=== PATIENT | female | born 1955 | race Caucasian/White ===

== ENCOUNTER 2021-03-04 07:35 | Inpatient (IN) | payer MEDICARE, MEDICAID, SELFPAY ==
[2021-03-04] VITALS (27 sets, daily range): BP systolic 146–228; BP diastolic 75–124; PULSE 70–98; RESP 14–29; TEMP 36.1–36.7; O2SAT 93–100; BMI 44.1
--- NOTE | ~2021-03-04 | XR_ITS ---
EXAMINATION: XR chest 2V DATE: 03/04/2021 07:55 INDICATION: Shortness of breath. TECHNIQUE: Frontal and lateral views of the chest were obtained. COMPARISON: None. FINDINGS: There are airspace opacities in the mid and lower lung zones with a perihilar predominance. There is a small left pleural effusion. No pneumothorax. Cardiomegaly is noted. IMPRESSION: 1. Airspace opacities in the mid and lower lung zones with a perihilar predominance, consistent with mild pulmonary edema versus pneumonia. 2. Small left pleural effusion. 3. Cardiomegaly. Reviewed, dictated and finalized at location B. IMPRESSION: 1. Airspace opacities in the mid and lower lung zones with a perihilar predomin ance, consistent with mild pulmonary edema versus pneumonia. 2. Small left pleural effusion. 3. Cardiomegaly.
--- NOTE | ~2021-03-04 | NM_ITS ---
EXAMINATION: NM alvina stress w perfusion DATE: 03/08/2021 13:36 INDICATION: Congestive heart failure. Elevated troponin. TECHNIQUE: Rest images were obtained following intravenous administration of 9 mCi Tc99m tetrofosmin (Myoview). The patient was infused intravenously with Lexiscan (regadenoson). Then, 27.6 mCi Tc99m te trofosmin (Myoview) was administered intravenously, and stress images were obtained. Data was reconst ructed into short axis and horizontal and vertical long axis SPECT images. Gated SPECT images were al so obtained. COMPARISON: None. FINDINGS: There is a large, partially reversible, severe perfusion defect involving mid inferior wall , mid to basal inferolateral wall, apical lateral wall, and mid anterolateral wall of left ventricle, consistent with mixed ischemia and infarct. There is no segmental wall motion abnormality. Left ve ntricular ejection fraction measures 59%. IMPRESSION: 1. Large area of severe mixed ischemia and infarct involving mid inferior wall, mid to basal inferola teral wall, apical lateral wall, and mid anterolateral wall of left ventricle. 2. Normal left ventricular ejection fraction measuring 59%. Reviewed, dictated and finalized at location A. IMPRESSION: 1. Large area of severe mixed ischemia and infarct involving mid inferior wall, mid to basal inferolateral wall, apical lateral wall, and mid anterolateral wa ll of left ventricle. 2. Normal left ventricular ejection fraction measuring 59%.
--- NOTE | 2021-03-04 07:43 | ED.SOB ---
HPI - SOB/Dyspnea General Chief Complaint: Shortness of Breath/Dyspnea Stated Complaint: SOB Time Seen by Provider: 03/04/21 07:37 Source: patient, family, EMS and RN notes reviewed Mode of arrival: EMS Limitations: no limitations History of Present Illness HPI Narrative: Patient is 65 years old white female presented to the ED with shortness of breath. Patient reports history of chronic shortness of breath and coughing, got worse over the last 2 days, this morning could not breathe well. History of COPD on 2-1/2 L oxygen by nasal cannula, atrial fibrillation on Coumadin, congestive heart failure. Patient is telling me that she got all her medications this morning as usual. History of COVID-19 infection August 2020, did not get vaccinated for Covid yet. Patient denies any fever, chills, nausea, vomiting, chest pain, increased coughing, or increase the amount of sputum. MD elicited complaint: shortness of breath Related Data Home Medications Medication Instructions Recorded Confirmed amlodipine 03/04/21 ferrous sulfate [FeroSul] mg 03/04/21 furosemide 03/04/21 hydralazine 03/04/21 metformin mg 03/04/21 metoprolol tartrate 03/04/21 potassium chloride meq PO 03/04/21 warfarin 03/04/21 warfarin 03/04/21 warfarin 03/04/21 Allergies Allergy/AdvReac Type Severity Reaction Status Date / Time No Known Allergies Allergy Verified 03/04/21 07:44 Review of Systems Review of Systems: Narrative: CONSTITUTIONAL: Denies fever, chills, or sweats. EYES: Denies visual changes, redness, or discharge. ENT: Denies rhinorrhea, congestion, sore throat, or otalgia. CARDIOVASCULAR: Denies chest pain, palpitations, or edema. RESPIRATORY: Denies cough or dyspnea. GASTROINTESTINAL: Denies abdominal pain, nausea, vomiting, or diarrhea. GENITOURINARY: Denies dysuria or hematuria. SKIN: Denies rash or itching. MUSCULOSKELETAL: Denies back pain, joint pain, or myalgia. NEUROLOGIC: Denies headache, numbness, or weakness. PSYCHIATRIC: Denies anxiety or depression. Exam Narrative: Exam Narrative: General appearance: Well-developed, well-nourished, sitting in upright position, labored breathing, nasal cannula on, granddaughter at the bedside Skin: Normal color Head: Normocephalic, nontraumatic Eyes: Clear conjunctiva ENT: Oropharynx normal, ears normal, nose normal Neck: Supple, nontender Chest and respiratory: Marked diminution of air entry bilaterally, basal rales bilaterally, few scattered rhonchi Heart: Irregular irregularity Abdomen: Soft, nontender, no organomegaly, quiet bowel sounds Vascular: Normal peripheral pulses, normal capillary refill. Musculoskeletal: Normal range of motion, nontender back Neurologic: Alert and oriented ?3, VP PRODUCTION is normal as tested, no gross motor deficit Course Course Emergency Course: Improving Vital Signs Vital signs: Vital Signs Temperature 36.7 C 03/04/21 07:40 Pulse Rate 92 03/04/21 07:40 Respiratory Rate 28 H 03/04/21 07:40 Blood Pressure 199/112 H 03/04/21 07:40 Pulse Oximetry 93 03/04/21 07:40 Temperature 36.7 C 03/04/21 07:40 Pulse Rate 92 03/04/21 07:40 Respiratory Rate 28 H 03/04/21 07:40 Blood Pressure 199/112 H 03/04/21 07:40 Pulse Oximetry 93 03/04/21 07:40 MDM - SOB/Dyspnea Differential Diagnosis Differential diagnosis: Likely acute exacerbation of chronic obstructive airways disease, congestive heart failure and community acquired pneumonia ABG Data ABG results: Impressions Chest X-Ray 03/04/21 07:59 IMPRESSION: 1. Airspace opacities in the mid and lower lung zones with a perihilar predominance, consistent with mild pulmonary edema versus pneumonia. 2
--- NOTE | 2021-03-04 07:44 | ECG_ITS ---
ATRIAL FIBRILLATION VENTRICULAR PREMATURE COMPLEX LEFT BUNDLE BRANCH BLOCK LOW QRS VOLTAGE IN LIMB LEADS EXTENSIVE ANTERIOR INFARCT OR DUE TO LBBB BASELINE ARTIFACT- I, II, III, AVR, AVL, AVF ABNORMAL ECG Electronically Signed On 03-09-2021 14:52:00 CDT by Narinder RUSSELL
[2021-03-04] MEDS: methylPREDNISolone SOD SUCC 125 MG VIAL IV PUSH (07:56)
[2021-03-04] MEDS: IPRATROPIUM BR 0.02% INH SOLN 0.5 MG/2.5 ML VIAL INHALATION ×3 (08:06→19:45)
[2021-03-04] MEDS: ALBUTEROL SULFATE NEB 2.5 MG/0.5 ML INH 5 MG INHALATION ×3 (08:06→19:45)
[2021-03-04 08:20] LABS: Alveolar/Arterial O2 Gradient 117.8 mmHg; Base Excess ABG 6.6 mEq/l (+/-2.0); Fractional Inspired Oxygen 36 %; HCO3 ABG 34.3 mEq/l (22.0-26.0); Oxygen Content ABG 14.9 %vol (16.0-22.0); Oxygen Saturation ABG 90.2 % (95.0-100.0); Oxyhemoglobin 89.5 % THb (90.0-100.0); PO2 ABG 63.4 mmHg (80.0-100.0); PO2 FiO2 Ratio Arterial Blood 1.76 %; Total Hemoglobin 11.8 g/dL (12.0-18.0); pH ABG 7.339 (7.350-7.450)
[2021-03-04 08:22] LABS: Device NASAL CANNULA; Modified Allen's Test Pass; PCO2 ABG 65.1 mmHg (35.0-45.0); Site Drawn LEFT RADIAL
[2021-03-04] MEDS: NITROGLYCERIN OINTMENT 1 INCH DOSE TRANSDERM ×3 (08:40→16:38)
[2021-03-04] MEDS: FUROSEMIDE INJ 40 MG/4 ML VIAL 60 MG IV PUSH (08:43)
[2021-03-04 09:04] LABS: Alanine Aminotransferase 18 U/L (4-35); Albumin Level 4.1 g/dL (3.5-5.1); Alkaline Phosphatase 134 U/L (38-126); Anion Gap 6 mmol/L (8-16); Aspartate Amino Transferase 31 U/L (14-36); Blood Urea Nitrogen 26 mg/dL (7-17); Carbon Dioxide 35 mmol/L (22-30); Chloride 98 mmol/L (98-107); Estimated CRCL calculation 36 ml/min; Estimated Glomerular Filt Rate 32; Glucose 203 mg/dL (65-105); Magnesium 1.8 mg/dL (1.6-2.3); Potassium 4.1 mmol/L (3.4-5.0); Sodium 139 mmol/L (137-145)
[2021-03-04 09:18] LABS: NT Pro B Type Natriuretic Pept 5670 PG/ML (5-100); Troponin I 0.039 ng/mL (0.000-0.034)
[2021-03-04 09:24] LABS: Basophils Percent Auto 0.5 % (0.2-1.2); Eosinophils Absolute Auto 0.1 K/mm3 (0-0.3); Eosinophils Percent Auto 1.6 % (0-4.4); Hematocrit 35.4 % (37.0-47.0); Hemoglobin 10.9 g/dL (12.0-15.0); Immature Granulocyte Absolute 0.04 K/mm3 (0.00-0.031); Immature Granulocyte Percent A 0.5 % (0-0.5); Lymphocytes Percent Auto 5.7 % (18.3-44.2); Mean Corpuscular HGB Conc 30.8 g/dl (32-36); Mean Corpuscular Hemoglobin 28.6 pg (26-34); Mean Corpuscular Volume 92.9 fl (80-100); Mean Platelet Volume 10.4 fl (7.4-10.4); Monocytes Absolute Auto 0.3 K/mm3 (0.1-0.6); Monocytes Percent Auto 3.3 % (2.6-8.5); Neutrophils Absolute Auto 7.7 K/mm3 (1.3-6.7); Neutrophils Percent Auto 88.4 % (45.5-73.1); Platelet Count Result 157 k/mm3 (150-375); Red Blood Count 3.81 M/mm3 (4.2-5.4); Red Cell Distribution Width 15.3 % (11.5-14.5); White Blood Count 8.8 K/mm3 (4.5-10.0)
[2021-03-04 09:34] LABS: INR 1.8; Prothrombin Time 21.5 Seconds (11.1-14.7)
[2021-03-04 09:35] LABS: Partial Thromboplastin Time 30.9 SECONDS (22.3-36.8)
--- NOTE | 2021-03-04 10:35 | PC.NURSE ---
EDP notified of patient high blood pressure. Per EDP via verbal order readback place additional inch of nitro paste on patient.
--- NOTE | 2021-03-04 12:35 | PC.NURSE ---
This patient, Sultana Ospina, was admitted to IMU Room 213-01. Patient/family oriented to hospital policies and general routines including ID bracelet, bed and alarms, visiting hours, pain management, procedures, bathroom and other care routines, personal items, smoking policy, room service/diet, and visiting hours. Information on how to activate the Rapid Response Team has been discussed. Patient/Family are encouraged to report perceived risks to care and to ask questions if they do not understand what they are told or what they should do.
--- NOTE | 2021-03-04 14:30 | PM.IMHP ---
H&P: HPI History of Present Illness Date/Time: 03/04/21 14:30 this is a 65 year old female patient who has a history of chronic respiratory failure with oxygen at 2.5 L per nasal cannula. She has COPD and congestive heart failure. The patient does not have any increased swelling in her lower extremities has been feeling more short of breath over the last 2 days. Today she crease her oxygen up to 4 L per nasal cannula. For the past 2 days she has been more short of breath with exertion. She has been walking shorter distances due to the shortness of breath. The patient has not had her COVID vaccine but has a history of COVID-19 infection back in August of 2020. She denied any fever chills. No nausea vomiting or diarrhea. Patient's oxygen levels 93%. Chest x-ray was read as airspace opacities in the mid and lower lung zones with perihilar predominance, consistent with pulmonary edema versus pneumonia. Small left pleural effusion. Cardiomegaly. Her EKG was read as normal sinus rhythm nonspecific T-wave abnormality. H&H is 10.9 and 35.4. On her ABGs her pH was 7.339 and her CO2 was 65.1. She was initially placed on a BiPAP while in the emergency room but felt better and is now down to her normal 2.5 L. her O2 saturation is 100% now. Was given a nebulizer treatment, Lasix, Levaquin, nitro, and Solu-Medrol. The patient stated that she does not have any chest pain. The patient was swabbed for COVID-19 and results are pending.. Glucose 203. Creatinine 1.60. The patient denies any past history of any kidney disease. The patient stated with her last labs her A1c was good according to the patient but she could not remember the numbers. Troponin 0.039 and 0.075. BNP is 5670. The patient is being admitted for observation status on Date of service of 03/04/2021. Chief Complaint: Dyspnea on exertion Review of Systems Review of Systems: All systems reviewed & are unremarkable except as noted in HPI and below Constitutional: Constitutional: Reports as per HPI and Reports no additional constitutional complaints Eyes: Eyes: Reports as per HPI and Reports no additional eye complaints ENT: Reports system reviewed and no additional complaints, except as documented and Reports Normal hearing present Cardiovascular: Cardiovascular: Reports no additional cardiovascular complaints Respiratory: Respiratory: Reports no additional respiratory complaints and Reports no additional respiratory complaints Gastrointestinal: Gastrointestinal: Reports as per HPI and Reports no additional gastrointestinal complaints Musculoskeletal: Musculoskeletal: Reports no additional musculoskeletal complaints Integumentary/Breasts: Skin/Breast: Reports system reviewed and no additional complaints, except as docu and Reports as per HPI Neurologic: Reports system reviewed and no additional complaints, except as documented, Reports as per HPI and Reports Normal hearing present Psychiatric: Psychiatric: Reports no additional psychiatric complaints and Reports as per HPI Endocrine: Endocrine: Reports no additional endocrine complaints Hematologic/Lymphatic: Hematologic/Lymphatic: Reports no additional hematologic/lymphatic complaints Allergic/Immunologic: Allergic/Immunologic: Reports no additional allergic/immunologic complaints [facility] Past Medical History Medical History CHF exacerbation Chronic respiratory failure with hypoxia, on home oxygen therapy Congestive heart failure COPD (chronic obstructive pulmonary disease) Diabetes Last A1c unknown typically gets care at [facility] History of cellulitis Bilateral lower extremities Hypertension Iron deficiency anemia Paroxysmal A-fib Vertigo Surgical History Surgical History H/O tubal ligation History of back surgery History of incision and drainage Lower extremity Family History Family Hi
[2021-03-04 14:35] LABS: Troponin I 0.075 ng/mL (0.000-0.034)
[2021-03-04 16:30] LABS: Glucose Point of Care 215 (65-105)
[2021-03-04] MEDS: FERROUS SULFATE 324 MG TABLET PO (16:35)
[2021-03-04] MEDS: FUROSEMIDE INJ 40 MG/4 ML VIAL IV PUSH (16:36)
[2021-03-04] MEDS: INSULIN ASPART (*BKC) 100 UNITS/ML SUB-Q (16:37)
[2021-03-04] MEDS: methylPREDNISolone SOD SUCC 125 MG VIAL 80 MG IV PUSH (16:37)
[2021-03-04] MEDS: hydrALAZINE HCL 50 MG TABLET 100 MG PO (16:38)
[2021-03-04 16:46] LABS: INR 2.1; Prothrombin Time 23.7 Seconds (11.1-14.7)
[2021-03-04 16:56] LABS: SARS-CoV-2 RNA PCR Negative
[2021-03-04 16:59] LABS: Troponin I 0.063 ng/mL (0.000-0.034)
[2021-03-04] MEDS: METOPROLOL TARTRATE 50 MG TAB 100 MG PO (19:54)
[2021-03-04] MEDS: BETAMETHASONE/CLOTRIMAZOLE CR 15 GM TUBE 1 APPLIC TOPICAL (19:55)
[2021-03-04 20:59] LABS: Glucose Point of Care 223 (65-105)
[2021-03-05] VITALS (22 sets, daily range): BP systolic 154–184; BP diastolic 77–94; PULSE 60–90; RESP 16–30; TEMP 36–36.5; O2SAT 97–100
--- NOTE | 2021-03-05 | ECHO_ITS ---
Patient Info Name: Sultana Ospina Age: 65 years : 1955 Gender: Female Ht: 61 in Wt: 233 lbs BSA: 2.20 m2 HR: 85 bpm BP: 173 / 83 mmHg Heart Rhythm: Atrial Fibrillation Technical Quality: Poor Exam Date: 03/05/2021 10:47 AM Exam Location: [facility] Pulmonary Patient Status: Inpatient Admit Date: 03/04/2021 Staff Ordering Physician: Dinah Espana NP Superintendent Meters: Kitty Stern RDCS Attending Provider: Abel Girard MD Referring Physician: Jovi ZAYAS; Exam Type: CA echo dop color flow w con Study Info Indications R06.02 - Shortness of breath Complete two-dimensional, color flow and Doppler transthoracic echocardiogram is performed with contrast to opacify the left ventricle and to improve the deliniation of the left ventricle endocardial borders. Contrast/Agitated Saline Contrast/Ag. Saline: Definity Amount: 1.00 ml Administered By: Radha Matos RN Existing IV Access: Yes IV Access Condition: patent with no signs of infiltration Reason for Poor Study: poor echocardiographic windows Summary 1. Left ventricular chamber dimension is normal. 2. Definity contrast administered improved wall motion interpretation. 3. Left ventricular systolic function is normal, estimated at 60-65%. 4. There is mildly increased left ventricular wall thickness. 5. The left ventricular diastolic function is abnormal. 6. E/e' 20 is elevated. 7. Atrial fibrillation. 8. Left atrial chamber dimension is moderately enlarged. 9. There is moderate aortic valve sclerosis. 10. The mitral valve has moderately calcified annulus. 11. There is mild tricuspid valve regurgitation. 12. Mild pulmonary hypertension, estimated pulmonary arterial systolic pressure is 40 mmHg. Left Ventricle E/e' 20 is elevated. Atrial fibrillation. Definity contrast administered improved wall motion interpretation. Left ventricular chamber dimension is normal. Left ventricular systolic function is normal, estimated at 60-65%. There is mildly increased left ventricular wall thickness. The left ventricular diastolic function is abnormal. Right Ventricle Right ventricular chamber dimension is normal. Right ventricular systolic function is normal. Left Atria Left atrial chamber dimension is moderately enlarged. Right Atria Right atrial chamber dimension is normal. Aortic Valve The aortic valve is trileaflet. There is moderate aortic valve sclerosis. There is no aortic valve stenosis. There is no aortic valve regurgitation. Pulmonic Valve There is no pulmonic regurgitation. Mitral Valve The mitral valve has moderately calcified annulus. There is no mitral valve stenosis. There is no mitral valve regurgitation. Tricuspid Valve There is mild tricuspid valve regurgitation. Mild pulmonary hypertension, estimated pulmonary arterial systolic pressure is 40 mmHg. Pericardium/Pleural There is no pericardial effusion. Inferior Vena Cava Normal inferior vena cava with >50% collapse upon inspiration consistent with normal right atrial pressure, 5 mmHg. Aorta The aortic root size at the sinus of Valsalva is normal. Left Ventricular Outflow Tract Name Value Normal LVOT 2D
[2021-03-05] MEDS: hydrALAZINE HCL 50 MG TABLET 100 MG PO ×3 (00:56→17:34)
[2021-03-05] MEDS: NITROGLYCERIN OINTMENT 1 INCH DOSE TRANSDERM ×5 (00:56→23:57)
[2021-03-05] MEDS: methylPREDNISolone SOD SUCC 125 MG VIAL 80 MG IV PUSH ×5 (01:01→23:56)
[2021-03-05] MEDS: ALBUTEROL SULFATE NEB 2.5 MG/0.5 ML INH 5 MG INHALATION ×4 (01:09→20:18)
[2021-03-05] MEDS: IPRATROPIUM BR 0.02% INH SOLN 0.5 MG/2.5 ML VIAL INHALATION ×4 (01:09→20:18)
[2021-03-05 04:48] LABS: Basophils Percent Auto 0.1 % (0.2-1.2); Hematocrit 32.9 % (37.0-47.0); Hemoglobin 10.4 g/dL (12.0-15.0); Immature Granulocyte Absolute 0.03 K/mm3 (0.00-0.031); Immature Granulocyte Percent A 0.4 % (0-0.5); Lymphocytes Absolute Auto 0.32 K/mm3 (0.9-3.2); Lymphocytes Percent Auto 4.2 % (18.3-44.2); Mean Corpuscular HGB Conc 31.6 g/dl (32-36); Mean Corpuscular Hemoglobin 28.6 pg (26-34); Mean Corpuscular Volume 90.4 fl (80-100); Mean Platelet Volume 10.7 fl (7.4-10.4); Monocytes Absolute Auto 0.1 K/mm3 (0.1-0.6); Monocytes Percent Auto 1.3 % (2.6-8.5); Neutrophils Absolute Auto 7.1 K/mm3 (1.3-6.7); Platelet Count Result 142 k/mm3 (150-375); Red Blood Count 3.64 M/mm3 (4.2-5.4); Red Cell Distribution Width 15.1 % (11.5-14.5); White Blood Count 7.6 K/mm3 (4.5-10.0)
[2021-03-05 05:05] LABS: Alanine Aminotransferase 16 U/L (4-35); Alkaline Phosphatase 101 U/L (38-126); Anion Gap 7 mmol/L (8-16); Aspartate Amino Transferase 24 U/L (14-36); Bilirubin,Total 1.1 mg/dL (0.2-1.3); Blood Urea Nitrogen 36 mg/dL (7-17); Calcium 9.4 mg/dL (8.4-10.2); Carbon Dioxide 34 mmol/L (22-30); Chloride 96 mmol/L (98-107); Estimated CRCL calculation 38 ml/min; Estimated Glomerular Filt Rate 35; Glucose 204 mg/dL (65-105); Magnesium 1.9 mg/dL (1.6-2.3); Potassium 4.5 mmol/L (3.4-5.0); Sodium 137 mmol/L (137-145)
[2021-03-05] MEDS: hydrALAZINE HCL 20 MG/ML VIAL 10 MG IV PUSH (05:16)
[2021-03-05 05:27] LABS: Troponin I 0.035 ng/mL (0.000-0.034)
[2021-03-05 06:54] LABS: Hemoglobin A1C 5.4 % (<5.7)
[2021-03-05 08:28] LABS: Thyroid Stimulating Hormone Reflex 0.292 uIU/mL (0.465-4.68)
[2021-03-05] MEDS: METOPROLOL TARTRATE 50 MG TAB 100 MG PO ×2 (08:40→21:12)
[2021-03-05] MEDS: WARFARIN (*PBKC) 3 MG TABLET 6 MG PO (08:40)
[2021-03-05] MEDS: FUROSEMIDE INJ 40 MG/4 ML VIAL IV PUSH ×2 (08:41→17:34)
[2021-03-05] MEDS: POTASSIUM CHLORIDE 10 MEQ TABLET.ER PO (08:42)
[2021-03-05] MEDS: FERROUS SULFATE 324 MG TABLET PO ×2 (08:42→17:33)
[2021-03-05] MEDS: BETAMETHASONE/CLOTRIMAZOLE CR 15 GM TUBE 1 APPLIC TOPICAL ×2 (08:43→21:12)
[2021-03-05] MEDS: ASPIRIN 81 MG CHEWABLE TABLET PO (08:47)
[2021-03-05] MEDS: INSULIN ASPART (*BKC) 100 UNITS/ML SUB-Q ×4 (08:47→21:13)
[2021-03-05 08:59] LABS: Glucose Point of Care 332 (65-105)
[2021-03-05] MEDS: PERFLUTREN LIPID MICROSPHERES 1.5 ML VIAL DILUTED TO 10 ML TOTAL VOLUME IV PUSH (11:21)
[2021-03-05 12:30] LABS: Total Triiodothyronine (T3) 0.74 NG/ML (0.97-1.69)
[2021-03-05 12:52] LABS: Glucose Point of Care 246 (65-105)
--- NOTE | 2021-03-05 13:17 | PM.IMPN ---
Progress Note: A&P Additional Plan (1) Acute exacerbation of chronic obstructive airways disease: (2) CHF exacerbation: (3) Chronic respiratory failure with hypoxia, on home oxygen therapy: (4) Hypertension (5) Paroxysmal A on warfarin (6) Iron deficiency anemia: (7) Diabetes: (8) Renal failure: (9) Elevated troponin: Secondary to hypoxemia (10) Community acquired pneumonia: (11) hyperglycemia Continue with Solu-Medrol. Continue with neb treatments. Continue with home oxygen. 3 L Continue BiPAP machine p.r.n.. Echo pending patient appears to have systolic heart failure based on physical exam findings today continue Lasix to IV Continue with metoprolol and hydralazine. INR 2.2 continue home dose 6 mg p.o. q.day Increase sliding scale insulin Avoiding nephrotoxic medications. Add vancomycin given preliminary Gram-positive cluster blood culture Anticipate discharge in 2-3 days when patient euvolemic Subjective Date/time seen: 03/05/21 13:17 Patient states she is feeling much better she no longer feels her chest having and is unable to catch her breath. She is breathing without difficulty. He she is at normal baseline 3 L oxygen. Patient advise that she is on a fluid restriction, we follow-up with ongoing CHF teaching, dietary modification indications also given. Exam Narrative: Exam Narrative: GEN: NAD, AAOx3, cooperative HEENT: NCAT, MMM, EOMI Heart: S1S2 RRR Lungs: Bibasilar crackles with reduced breath sounds Abd: soft, NT, ND, bowel sounds normoactive Ext: moves all, no cyanosis, no clubbing, no edema Objective Data Vital Signs Vital Signs: Vital Signs - 24 hr 03/04/21 14:00 03/04/21 14:34 03/04/21 14:43 Temperature Pulse Rate 88 94 94 Respiratory Rate 20 20 Blood Pressure Pulse Oximetry 03/04/21 16:00 03/04/21 18:00 03/04/21 19:23 Temperature 97 F L 97.7 F Pulse Rate 81 85 85 Respiratory Rate 22 H 20 Blood Pressure 184/95 H 185/82 H Pulse Oximetry 100 97 03/04/21 19:45 03/04/21 19:54 03/04/21 19:56 Temperature Pulse Rate 98 85 85 Respiratory Rate 20 20 Blood Pressure Pulse Oximetry 98 03/04/21 20:00 03/04/21 22:00 03/04/21 22:35 Temperature Pulse Rate 75 78 81 Respiratory Rate 14 Blood Pressure Pulse Oximetry 97 98 03/05/21 00:00 03/05/21 01:14 03/05/21 01:15 Temperature 97.4 F L Pulse Rate 61 65 60 Respiratory Rate 17 28 H 28 H Blood Pressure 184/90 H Pulse Oximetry 100 98 03/05/21 01:19 03/05/21 02:00 03/05/21 03:22 Temperature 97.6 F Pulse Rate 63 90 78 Respiratory Rate 30 H 16 Blood Pressure 173/83 H Pulse Oximetry 100 03/05/21 04:00 03/05/21 06:09 03/05/21 08:00 Temperature 97.6 F Pulse Rate 66 68 85 Respiratory Rate 22 H Blood Pressure 154/94 H Pulse Oximetry 100 100 03/05/21 08:20 03/05/21 08:34 03/05/21 10:00 Temperature Pulse Rate 72 84 84 Respiratory Rate 20 20 Blood Pressure Pulse Oximetry 98 03/05/21 12:00 Temperature 97.7 F Pulse Rate 87 Respiratory Rate 24 H Blood Pressure 156/77 H Pulse Oximetry 98 Intake/Output Intake/Output: Intake & Output 03/02/21 03/03/21 03/04/21 03/05/21 23:59 23:59 23:59 23:59 Intake Total 390 710 Output Total 1475 1450 Balance -1088 -730 Meds/Results Medications: Active Medications Generic Name Dose Route Start Last Admin Trade Name Freq PRN Reason Stop Dose Admin Albuterol 5 mg 03/04/21 14:00 03/05/21 08:20 Albuterol Sulfate Neb 2.5 Mg/0.5 Ml Inh INHALATION 5 mg Q6HRT TARUN Administration Aspirin 81 mg 03/05/21 08:00 03/05/21 08:47 Aspirin 81 Mg Chewable Tablet PO 81 mg DAILY@0800 TARUN Administration Clotrimazole 1 applic 03/04/21 21:00 03/05/21 08:43 Betamethasone/Clotrimazole Cr 15 Gm Tube TOPICAL 1 applic Q12HR TARUN Administration Dextrose 12.5 gm 03/04/21 14:50 Dextrose 50% 25 Gm/50 Ml Syringe IV PUSH PRN PRN Hypoglycemia Protocol Ferrous Hendricks
[2021-03-05 17:25] LABS: Glucose Point of Care 299 (65-105)
[2021-03-05 20:52] LABS: Glucose Point of Care 269 (65-105)
[2021-03-05] MEDS: MAGNESIUM SULF 1 GM/D5W 100 ML 1 GM/100 ML BAG IVPB (22:31)
[2021-03-06] VITALS (30 sets, daily range): BP systolic 117–174; BP diastolic 51–99; PULSE 69–127; RESP 17–23; TEMP 36–36.4; O2SAT 97–100
[2021-03-06] MEDS: hydrALAZINE HCL 50 MG TABLET 100 MG PO ×3 (01:34→17:42)
[2021-03-06] MEDS: IPRATROPIUM BR 0.02% INH SOLN 0.5 MG/2.5 ML VIAL INHALATION ×4 (01:52→20:06)
[2021-03-06] MEDS: ALBUTEROL SULFATE NEB 2.5 MG/0.5 ML INH 5 MG INHALATION ×4 (01:52→20:06)
[2021-03-06 05:03] LABS: Magnesium 2.1 mg/dL (1.6-2.3)
[2021-03-06] MEDS: methylPREDNISolone SOD SUCC 125 MG VIAL 80 MG IV PUSH ×2 (05:07→11:33)
[2021-03-06] MEDS: NITROGLYCERIN OINTMENT 1 INCH DOSE TRANSDERM ×4 (05:08→23:04)
[2021-03-06 07:13] LABS: Glucose Point of Care 269 (65-105)
[2021-03-06] MEDS: INSULIN ASPART (*BKC) 100 UNITS/ML SUB-Q ×3 (07:23→16:31)
[2021-03-06] MEDS: FERROUS SULFATE 324 MG TABLET PO ×2 (09:18→16:30)
[2021-03-06] MEDS: WARFARIN (*PBKC) 3 MG TABLET 6 MG PO (09:19)
[2021-03-06] MEDS: METOPROLOL TARTRATE 50 MG TAB 100 MG PO ×2 (09:19→20:13)
[2021-03-06] MEDS: ASPIRIN 81 MG CHEWABLE TABLET PO (09:19)
[2021-03-06] MEDS: BETAMETHASONE/CLOTRIMAZOLE CR 15 GM TUBE 1 APPLIC TOPICAL ×2 (09:21→20:13)
[2021-03-06] MEDS: POTASSIUM CHLORIDE 10 MEQ TABLET.ER PO (09:21)
[2021-03-06] MEDS: FUROSEMIDE INJ 40 MG/4 ML VIAL IV PUSH (09:23)
[2021-03-06 10:34] LABS: Basophils Percent Auto 0.1 % (0.2-1.2); Hemoglobin 10.2 g/dL (12.0-15.0); Immature Granulocyte Absolute 0.13 K/mm3 (0.00-0.031); Lymphocytes Absolute Auto 0.22 K/mm3 (0.9-3.2); Lymphocytes Percent Auto 1.6 % (18.3-44.2); Mean Corpuscular HGB Conc 31.9 g/dl (32-36); Mean Corpuscular Hemoglobin 28.1 pg (26-34); Mean Corpuscular Volume 88.2 fl (80-100); Mean Platelet Volume 10.5 fl (7.4-10.4); Monocytes Absolute Auto 0.3 K/mm3 (0.1-0.6); Monocytes Percent Auto 2.2 % (2.6-8.5); Neutrophils Absolute Auto 12.7 K/mm3 (1.3-6.7); Neutrophils Percent Auto 95.1 % (45.5-73.1); Platelet Count Result 152 k/mm3 (150-375); Red Blood Count 3.63 M/mm3 (4.2-5.4); Red Cell Distribution Width 15.1 % (11.5-14.5); White Blood Count 13.4 K/mm3 (4.5-10.0)
[2021-03-06 10:46] LABS: D Dimer 0.58 ug/mL (<0.48)
[2021-03-06 10:53] LABS: Glucose Point of Care 270 (65-105)
[2021-03-06 10:54] LABS: Alanine Aminotransferase 19 U/L (4-35); Alkaline Phosphatase 86 U/L (38-126); Anion Gap 13 mmol/L (8-16); Aspartate Amino Transferase 25 U/L (14-36); Bilirubin,Total 0.6 mg/dL (0.2-1.3); Blood Urea Nitrogen 51 mg/dL (7-17); Calcium 9.2 mg/dL (8.4-10.2); Carbon Dioxide 29 mmol/L (22-30); Chloride 93 mmol/L (98-107); Estimated CRCL calculation 36 ml/min; Estimated Glomerular Filt Rate 32; Glucose 306 mg/dL (65-105); Potassium 3.8 mmol/L (3.4-5.0); Sodium 135 mmol/L (137-145)
[2021-03-06 10:55] LABS: Troponin I 0.028 ng/mL (0.000-0.034)
[2021-03-06] MEDS: METOPROLOL TARTRATE INJ 5 MG/5 ML VIAL 2.5 MG IV PUSH (10:55)
[2021-03-06] MEDS: INSULIN GLARGINE (*BKC) 100 UNITS/ML 10 UNITS SUB-Q (10:55)
[2021-03-06 10:56] LABS: Anisocytosis 1+ (NORMAL); Hypochromasia 1+ (NORMAL); Ovalocytes 1+ (NORMAL); Platelet Estimate Adequate (Adequate)
[2021-03-06 11:46] LABS: INR 1.9; Prothrombin Time 22.5 Seconds (11.1-14.7)
[2021-03-06 16:27] LABS: Glucose Point of Care 314 (65-105)
[2021-03-06 16:29] LABS: Troponin I 0.027 ng/mL (0.000-0.034)
[2021-03-06 16:42] LABS: Troponin I 0.031 ng/mL (0.000-0.034)
--- NOTE | 2021-03-06 17:26 | PM.IMPN ---
Progress Note: A&P Additional Plan (1) Acute exacerbation of chronic obstructive airways disease: (2) CHF exacerbation: (3) Chronic respiratory failure with hypoxia, on home oxygen therapy: (4) Hypertension (5) Paroxysmal A on warfarin (6) Iron deficiency anemia: (7) Diabetes: (8) Renal failure: (9) Elevated troponin: Secondary to hypoxemia (10) Community acquired pneumonia: (11) hyperglycemia Continue with Solu-Medrol. Continue with neb treatments. Continue with home oxygen. 3 L Continue BiPAP machine p.r.n.. Echo pending patient appears to have systolic heart failure based on physical exam findings today continue Lasix to IV Continue with metoprolol and hydralazine. INR 2.2 continue home dose 6 mg p.o. q.day Increase sliding scale insulin Avoiding nephrotoxic medications. 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 Breathing is at baseline. She is on 2 L and saturating 100% at present. When questioned patient states that she has her oxygen at home around the clock. I have spoke with patient's daughter via telephone to let her know plan of care that we will discuss with cardiology prior to her mother being discharged possibly tomorrow if cleared by their service. Exam Narrative: Exam Narrative: GEN: NAD, AAOx3, cooperative HEENT: NCAT, MMM, EOMI Heart: S1S2 RRR Lungs: Bibasilar crackles improved with reduced breath sounds Abd: soft, NT, ND, bowel sounds normoactive Ext: moves all, no cyanosis, no clubbing, no edema Objective Data Vital Signs Vital Signs: Vital Signs - 24 hr 03/05/21 18:00 03/05/21 20:00 03/05/21 20:18 Temperature 96.8 F L Pulse Rate 79 74 81 Respiratory Rate 20 20 Blood Pressure 168/93 H Pulse Oximetry 98 100 03/05/21 20:29 03/05/21 21:12 03/05/21 22:00 Temperature Pulse Rate 84 87 77 Respiratory Rate 20 Blood Pressure Pulse Oximetry 03/06/21 00:00 03/06/21 01:52 03/06/21 01:59 Temperature 96.8 F L Pulse Rate 91 81 88 Respiratory Rate 20 20 Blood Pressure 117/82 Pulse Oximetry 98 03/06/21 02:04 03/06/21 03:08 03/06/21 03:19 Temperature 97.4 F L Pulse Rate 78 85 85 Respiratory Rate 20 17 17 Blood Pressure 149/51 H Pulse Oximetry 97 98 98 03/06/21 04:00 03/06/21 05:31 03/06/21 07:57 Temperature 97.5 F L Pulse Rate 95 75 92 Respiratory Rate 20 Blood Pressure 155/96 H Pulse Oximetry 100 03/06/21 08:00 03/06/21 08:18 03/06/21 08:21 Temperature Pulse Rate 83 75 Respiratory Rate 18 18 Blood Pressure Pulse Oximetry 100 98 03/06/21 08:29 03/06/21 09:19 03/06/21 09:48 Temperature Pulse Rate 76 99 127 H Respiratory Rate 18 Blood Pressure Pulse Oximetry 03/06/21 10:00 03/06/21 10:55 03/06/21 11:30 Temperature 97 F L Pulse Rate 84 84 83 Respiratory Rate 18 Blood Pressure 156/55 H Pulse Oximetry 100 03/06/21 12:00 03/06/21 14:00 03/06/21 14:40 Temperature Pulse Rate 87 81 81 Respiratory Rate 18 18 Blood Pressure Pulse Oximetry 100 03/06/21 14:50 03/06/21 16:00 Temperature 97.4 F L Pulse Rate 79 91 Respiratory Rate 18 18 Blood Pressure 153/99 H Pulse Oximetry 100 Intake/Output Intake/Output: Intake & Output
[2021-03-06] MEDS: amLODIPine BESYLATE 5 MG TABLET 10 MG PO (17:42)
[2021-03-06 20:35] LABS: Glucose Point of Care 259 (65-105)
[2021-03-07] VITALS (25 sets, daily range): BP systolic 152–192; BP diastolic 59–103; PULSE 59–88; RESP 18–25; TEMP 36–37.1; O2SAT 96–100
[2021-03-07] MEDS: ALBUTEROL SULFATE NEB 2.5 MG/0.5 ML INH 5 MG INHALATION ×4 (01:36→19:54)
[2021-03-07] MEDS: IPRATROPIUM BR 0.02% INH SOLN 0.5 MG/2.5 ML VIAL INHALATION ×4 (01:36→19:54)
[2021-03-07] MEDS: hydrALAZINE HCL 50 MG TABLET 100 MG PO ×3 (02:40→18:45)
[2021-03-07] MEDS: NITROGLYCERIN OINTMENT 1 INCH DOSE TRANSDERM (04:18)
[2021-03-07 05:22] LABS: INR 2.2; Prothrombin Time 25.4 Seconds (11.1-14.7)
[2021-03-07] MEDS: ASPIRIN 81 MG CHEWABLE TABLET PO (07:59)
[2021-03-07] MEDS: INSULIN ASPART (*BKC) 100 UNITS/ML SUB-Q ×3 (07:59→16:52)
[2021-03-07] MEDS: BETAMETHASONE/CLOTRIMAZOLE CR 15 GM TUBE 1 APPLIC TOPICAL ×2 (08:02→21:12)
[2021-03-07] MEDS: amLODIPine BESYLATE 5 MG TABLET 10 MG PO (08:02)
[2021-03-07 08:03] LABS: Glucose Point of Care 228 (65-105)
[2021-03-07] MEDS: POTASSIUM CHLORIDE 10 MEQ TABLET.ER PO (08:03)
[2021-03-07] MEDS: methylPREDNISolone SOD SUCC 125 MG VIAL 60 MG IV PUSH ×2 (08:03→16:51)
[2021-03-07] MEDS: METOPROLOL TARTRATE 50 MG TAB 100 MG PO ×2 (08:03→21:11)
[2021-03-07] MEDS: INSULIN GLARGINE (*BKC) 100 UNITS/ML 10 UNITS SUB-Q (08:04)
[2021-03-07] MEDS: WARFARIN (*PBKC) 3 MG TABLET 6 MG PO (08:04)
[2021-03-07] MEDS: FUROSEMIDE INJ 40 MG/4 ML VIAL IV PUSH (08:05)
--- NOTE | 2021-03-07 10:54 | PM.CNCAR ---
Assessment and Plan Assessment and plan (1) Hypertension: Code(s): I10 - Essential (primary) hypertension Status: Chronic Assessment and Plan: Uncontrolled. Agree with the addition of amlodipine yesterday. (2) Paroxysmal A-fib: Code(s): I48.0 - Paroxysmal atrial fibrillation Status: Chronic Assessment and Plan: In and out of AFib. She does not need digoxin. Continue metoprolol. Continue warfarin (3) CHF exacerbation: Code(s): I50.9 - Heart failure, unspecified Status: Chronic Assessment and Plan: Diastolic in etiology. Will discontinue IV furosemide. Restart furosemide 40 mg p.o. b.i.d.. (4) Elevated troponin: Code(s): R77.8 - Other specified abnormalities of plasma proteins Status: Acute Assessment and Plan: Uncertain etiology to this point. Will keep NPO after midnight. I will order Lexiscan myocardial perfusion study for the morning (5) Ventricular tachycardia: Code(s): I47.2 - Ventricular tachycardia Status: Acute Assessment and Plan: Stress test in the morning (6) Chronic anticoagulation: Code(s): Z79.01 - [facility] (current) use of anticoagulants Status: Acute Assessment and Plan: Continue warfarin. History of Present Illness History of Present Illness Consult date/time: 03/07/21 10:54 Requesting physician: Heidi Cadet MD Consult reason: atrial fibrillation Reason For Visit: acute respiratory failure,chf,elevated troponin,co Narrative: Date of service 03/07/2021 History: Patient is a 65-year-old female who has a history of paroxysmal atrial fibrillation. She has seen Dr. Bustillo in [place]. In 2009 she went to the emergency room because of congestive heart failure symptoms. She was found to have new onset of atrial fibrillation at that time. She was initiated on anticoagulation at that time and as well as metoprolol. Warfarin is managed by PCP. Cardiology consultation was requested because the patient formally been on digoxin but is no longer on it. She had a brief episode of rapid ventricular response yesterday. Also there was an episode of ventricular tachycardia on the day of admission and Cardiology consultation was requested. Patient came to hospital because respiratory issues including worsening shortness of breath which occurred rather acutely. For about 2 days prior to admission she was more short of breath with exertion. On the day of admission this became significantly worse and she came to [facility] for further evaluation. She was in sinus rhythm at that time. She was initially placed on BiPAP and was given a nebulizer treatment, furosemide as well as steroids. She is currently feeling much better. She denies any syncope, presyncope, paroxysmal nocturnal dyspnea, orthopnea, edema or palpitations. She has no significant bleeding problems and no chest pain at this point. Review of Systems Review of Systems: Narrative: Awake alert oriented appears to be in no acute distress appears stated age All systems reviewed & are unremarkable except as noted in HPI and below Constitutional: Constitutional: Denies weakness Eyes: Eyes: Denies blurry vision ENT: Reports Normal hearing present Cardiovascular: Cardiovascular: Denies chest pain Respiratory: Respiratory: Reports dyspnea Gastrointestinal: Gastrointestinal: Denies abdominal pain Genitourinary: Genitourinary: Denies hematuria and Denies flank pain Musculoskeletal: Musculoskeletal: Denies back pain and Denies neck pain Integumentary/Breasts: Skin/Breast: Denies dry skin and Denies unusual bruising Neurologic: Denies headache(s) and Denies numbness Psychiatric: Psychiatric: Denies anxiety and Denies confusion Endocrine: Endocrine: Denies fatigue and Denies flushing Hematologic/Lymphatic: Hematologic/Lymphatic: Denies easy bleeding and Denies easy bruising Allergic/Immunologic: Allergic/Immunologic: Jimenez
[2021-03-07 11:19] LABS: Glucose Point of Care 214 (65-105)
--- NOTE | 2021-03-07 11:39 | PM.IMPN ---
Progress Note: A&P Additional Plan (1) Acute exacerbation of chronic obstructive airways disease: (2) CHF exacerbation: (3) Chronic respiratory failure with hypoxia, on home oxygen therapy: (4) Hypertension (5) Paroxysmal Afib on warfarin (6) Iron deficiency anemia: (7) Diabetes: (8) Renal failure: (9) Elevated troponin: Secondary to hypoxemia (10) Community acquired pneumonia: (11) hyperglycemia Continue with Solu-Medrol. Continue with neb treatments. Continue with home oxygen. 3 L Continue BiPAP machine p.r.n.. Echo pending patient appears to have systolic heart failure based on physical exam findings today continue Lasix to IV Continue with metoprolol and hydralazine. INR 2.2 continue home dose 6 mg p.o. q.day Increase sliding scale insulin Avoiding nephrotoxic medications. Add vancomycin given preliminary Gram-positive cluster blood culture Anticipate discharge in 2-3 days when patient euvolemic 03/06/21 pt back to baseline resp status lasix 40BID to QD BG not at goal hyperglycemia associated w steroids Lantus 10U BID, down titrate steroids BP not at goal home meds reviewed and corrected Amlodipine continued 10mg PO QD HR afib not at goal metoprolol 100mg PO BID previously on digoxin but discontinued (history unclear) IV push low dose metoprolol c/s cardiology for change in medical therapy, ([facility] drawer of [facility] at [facility]) cont warfarin ECHO cardiogram reviewed mod EF 60-65% w Diastolic dysfxn Time for this encounter 45min 03/07/21 lasix home dose resumed Lantus increased first dose given this morning anticipate BG to improve today, will need to hold when pt placed NPO cont ISS BP still not at goal, PRN hydralazine added, suspect pt would benefit from nifedipine 30XL instead of amlodipine 10mg cont metoprolol, no digoxin, cardiac recs appreciated cont warfarin Subjective Date/time seen: 03/07/21 11:39 Patient doing okay sitting up in chair daughter bedside eating together no complaints. Patient is aware that she will undergo a stress test in a.m.. Possible discharge home thereafter depending on Cardiology recommendations. She is 95% on 2 L O2 her normal home oxygen requirement Exam Narrative: Exam Narrative: GEN: NAD, AAOx3, cooperative HEENT: NCAT, MMM, EOMI Heart: S1S2 RRR Lungs: Aerating symmetric chest is no use of accessory muscles improving crackles Abd: soft, NT, ND, bowel sounds normoactive Ext: moves all, no cyanosis, no clubbing, no edema Objective Data Vital Signs Vital Signs: Vital Signs - 24 hr 03/06/21 12:00 03/06/21 14:00 03/06/21 14:40 Temperature Pulse Rate 87 81 81 Respiratory Rate 18 Blood Pressure Pulse Oximetry 100 03/06/21 14:50 03/06/21 16:00 03/06/21 18:00 Temperature 97.4 F L Pulse Rate 79 83 83 Respiratory Rate 18 18 Blood Pressure 153/99 H Pulse Oximetry 100 03/06/21 20:00 03/06/21 20:08 03/06/21 20:13 Temperature 97.5 F L Pulse Rate 73 76 83 Respiratory Rate 18 18 Blood Pressure 174/78 H Pulse Oximetry 100 99 03/06/21 20:18 03/06/21 23:05 03/06/21 23:45 Temperature 96.8 F L Pulse Rate 80 78 Respiratory Rate 18 18 Blood Pressure 166/76 H Pulse Oximetry 100 100 03/07/21 00:00 03/07/21 01:38 03/07/21 01:48 Temperature Pulse Rate 70 79 80 Respiratory Rate 18 18 Blood Pressure Pulse Oximetry 96 03/07/21 02:00 03/07/21 03:41 03/07/21 04:00 Temperature 96.8 F L Pulse Rate 63 80 Respiratory Rate 25 H Blood Pressure 184/63 H Pulse Oximetry 100 100 03/07/21 05:59 03/07/21 07:25 03/07/21 08:00 Temperature 97.4 F L Pulse Rate 71 87 78 Respiratory Rate 18 18 Blood Pressure 192/91 H Pulse Oximetry 100 98 03/07/21 08:03 03/07/21 08:10 03/07/21 08:13 Temperature Pulse Rate 84 78 Respiratory Rate 18 Blood Pressure Pulse Oximetry 98 03/07/21 10:00 Temperature Pulse Rate 83 Respiratory Rate Blood Pressure Pulse Oximetry I
[2021-03-07] MEDS: FERROUS SULFATE 324 MG TABLET PO ×2 (12:27→16:51)
[2021-03-07] MEDS: hydrALAZINE HCL 20 MG/ML VIAL 10 MG IV PUSH (12:28)
[2021-03-07 16:34] LABS: Glucose Point of Care 347 (65-105)
[2021-03-07] MEDS: FUROSEMIDE 40 MG TABLET PO (16:51)
[2021-03-07 20:01] LABS: Glucose Point of Care 356 (65-105)
[2021-03-08] VITALS (27 sets, daily range): BP systolic 131–163; BP diastolic 49–84; PULSE 47–89; RESP 18–26; TEMP 35.9–36.4; O2SAT 96–100
[2021-03-08] MEDS: hydrALAZINE HCL 50 MG TABLET 100 MG PO ×3 (01:43→17:44)
[2021-03-08] MEDS: IPRATROPIUM BR 0.02% INH SOLN 0.5 MG/2.5 ML VIAL INHALATION ×4 (01:58→20:06)
[2021-03-08] MEDS: ALBUTEROL SULFATE NEB 2.5 MG/0.5 ML INH 5 MG INHALATION ×4 (01:58→20:06)
[2021-03-08 05:00] LABS: Basophils Percent Auto 0.1 % (0.2-1.2); Hematocrit 32.5 % (37.0-47.0); Hemoglobin 10.4 g/dL (12.0-15.0); Immature Granulocyte Absolute 0.11 K/mm3 (0.00-0.031); Immature Granulocyte Percent A 1.6 % (0-0.5); Lymphocytes Absolute Auto 0.27 K/mm3 (0.9-3.2); Mean Corpuscular Volume 87.6 fl (80-100); Mean Platelet Volume 10.6 fl (7.4-10.4); Monocytes Absolute Auto 0.3 K/mm3 (0.1-0.6); Neutrophils Percent Auto 90.3 % (45.5-73.1); Platelet Count Result 127 k/mm3 (150-375); Red Blood Count 3.71 M/mm3 (4.2-5.4); Red Cell Distribution Width 14.6 % (11.5-14.5); White Blood Count 6.7 K/mm3 (4.5-10.0)
[2021-03-08 05:12] LABS: INR 2.2; Prothrombin Time 24.7 Seconds (11.1-14.7)
[2021-03-08 05:20] LABS: Anion Gap 6 mmol/L (8-16); Blood Urea Nitrogen 54 mg/dL (7-17); Calcium 8.6 mg/dL (8.4-10.2); Carbon Dioxide 33 mmol/L (22-30); Chloride 95 mmol/L (98-107); Estimated CRCL calculation 31 ml/min; Estimated Glomerular Filt Rate 38; Glucose 277 mg/dL (65-105); Magnesium 2.2 mg/dL (1.6-2.3); Potassium 4.4 mmol/L (3.4-5.0); Sodium 134 mmol/L (137-145)
--- NOTE | 2021-03-08 07:36 | P.CDI_ITS ---
CDI Query Clarification Request 1) Two blood cultures growing coag negative staph - Vancomycin 1,500mg IV q 36 hrs ordered - Add vancomycin given preliminary Gram-positive cluster blood culture documented Please clarify if there is a corresponding diagnosis for above findings: * Sepsis * Bacteremia * Contaminant * Other * Unable to determine 2) Community acquired Pneumonia on the problem list - In H&P CAP documented with However she has no leukocytosis and no fever. and After reviewing her chest x-ray this appears to be more congestive heart failure as this is bilateral. I did not continue with the Levaquin at this point as it interferes with her Coumadin documented. Please clarify if community acquired pneumonia was ruled in or ruled out. <Diane Emerson RN - Last Filed: 03/08/21 07:42> Clarified Diagnosis (1) Bacteremia: Code(s): R78.81 - Bacteremia <Diane Emerson RN - Last Filed: 03/08/21 07:42> Status: Acute <Diane Emerson RN - Last Filed: 03/08/21 07:42> Assessment and Plan: patient blood culture is growing coagulase-negative staphylococci chest x-ray is not conclusive for pneumonia, white counts a not significantly elevated, and patient has no fever, patient does have a bacteremia and being treated with vancomycin will consult Dr. caal for further recommendation, <Maura Herrera MD - Last Filed: 03/08/21 15:34>
--- NOTE | 2021-03-08 08:10 | EST_ITS ---
Patient Info Name: Sultana Ospina Age: 65 years : 1955 Gender: Female Ht: 61 in Wt: 240 lbs BSA: 2.23 m2 Exam Date: 03/08/2021 12:16 PM Exam Location: [facility] Stress Patient Status: Inpatient Admit Date: 03/04/2021 Staff Ordering Physician: Magen Lai MD Attending Provider: pranav dailey md Exercise Technologist: Kitty Stern RDCS Exercise Physician: Pranav Dailey MD Exam Type: CA stress alvina w NM Study Info Indications - elevated troponin - v-tach A regadenoson stress test was performed. Summary 1. Nondiagnostic ECG response to Lexiscan without changes meeting strict criteria for reversible myocardial ischemia. 2. Frequent stress-induced PVCs versus aberrant conduction. 3. Please correlate with nuclear medicine images, reported separately. 4. No chest discomfort with stress test. Protocol: Lexiscan Stress ECG Details Stage: REST Duration (min): 9 min : 11 sec HR (bpm): 74 SBP (mmHg): 170 DBP (mmHg): 104 Stage: REST Duration (min): 18 min : 10 sec HR (bpm): 80 SBP (mmHg): 170 DBP (mmHg): 104 Stage: STAGE 1 Duration (min): 1 min : 0 sec HR (bpm): 88 SBP (mmHg): 176 DBP (mmHg): 92 Stage: RECOVERY Duration (min): 1 min : 0 sec HR (bpm): 88 SBP (mmHg): 176 DBP (mmHg): 92 Stage: RECOVERY Duration (min): 2 min : 0 sec HR (bpm): 81 SBP (mmHg): 151 DBP (mmHg): 85 Stage: RECOVERY Duration (min): 3 min : 0 sec HR (bpm): 82 SBP (mmHg): 151 DBP (mmHg): 85 Stage: RECOVERY Duration (min): 3 min : 19 sec HR (bpm): 85 SBP (mmHg): 137 DBP (mmHg): 70 Rest HR: 80 bpm Peak HR: 94 bpm Rest Sys BP: 170 mmHg Peak Sys BP: 176 mmHg Max Pred HR: 156 bpm % Max Pred HR: 60 % Target HR: 133 bpm Max RPP: 16,544 bpm*mmHg Target HR Summary: Hemodynamic response to exercise was normal Termination Reason: Completed protocol Cardiac Symptoms: None Total Time: 1 min : 0 sec Rest Meza BP: 104 mmHg Peak Meza BP: 92 mmHg Total Dose: 0.4 mg Resting ECG Atrial fibrillation nonspecific IVCD, PVCs versus aberrant conduction, ventricular couplets. Stress ECG Nondiagnostic ECG response to Lexiscan without changes meeting strict criteria for reversible myocardial ischemia. Arrhythmias Frequent stress-induced PVCs versus aberrant conduction. Report Signatures
[2021-03-08 08:17] LABS: Glucose Point of Care 232 (65-105)
[2021-03-08] MEDS: METOPROLOL TARTRATE 50 MG TAB 100 MG PO ×2 (09:32→20:23)
[2021-03-08] MEDS: WARFARIN (*PBKC) 3 MG TABLET 6 MG PO (09:32)
[2021-03-08] MEDS: POTASSIUM CHLORIDE 10 MEQ TABLET.ER PO (09:32)
[2021-03-08] MEDS: FERROUS SULFATE 324 MG TABLET PO ×2 (09:33→17:42)
[2021-03-08] MEDS: FUROSEMIDE 40 MG TABLET PO ×2 (09:33→17:43)
[2021-03-08] MEDS: amLODIPine BESYLATE 5 MG TABLET 10 MG PO (09:33)
[2021-03-08] MEDS: methylPREDNISolone SOD SUCC 125 MG VIAL 60 MG IV PUSH (09:33)
[2021-03-08] MEDS: INSULIN GLARGINE (*BKC) 100 UNITS/ML 10 UNITS SUB-Q ×2 (09:34→17:47)
[2021-03-08] MEDS: ASPIRIN 81 MG CHEWABLE TABLET PO (09:39)
[2021-03-08] MEDS: BETAMETHASONE/CLOTRIMAZOLE CR 15 GM TUBE 1 APPLIC TOPICAL ×2 (09:40→20:25)
[2021-03-08 13:40] LABS: Glucose Point of Care 228 (65-105)
[2021-03-08] MEDS: INSULIN ASPART (*BKC) 100 UNITS/ML SUB-Q ×2 (14:05→17:43)
--- NOTE | 2021-03-08 15:01 | PM.PNCARD ---
Progress Note: A&P Assessment and Plan (1) Hypertension: Code(s): I10 - Essential (primary) hypertension Status: Chronic Assessment and Plan: Better controlled, not ideal. Continue amlodipine. (2) Paroxysmal A-fib: Code(s): I48.0 - Paroxysmal atrial fibrillation Status: Chronic Assessment and Plan: In and out of AFib. She does not need digoxin. Continue metoprolol. Continue warfarin goal INR 2-3. Monitor for bleeding. (3) Abnormal stress test: Code(s): R94.39 - Abnormal result of other cardiovascular function study Status: Acute Assessment and Plan: Stress test with reported large severe mixed infarct and ischemia inferior, inferolateral, anterolateral arcos no wall motion abnormalities EF 59%. Patient without symptoms at this time. Continue aggressive medical therapy. Given INR 2.2 unable to proceed with coronary angiography at this time. Follow up as an outpatient for further discussion and to notify us immediately any new concerns or questions with regards to chest pain or shortness of breath. Will follow up in the office in 2 weeks with further discussions to follow. Will add statin therapy for further risk reduction. Add atorvastatin 40 mg at bedtime. Follow up with Dr. Lai as outpatient (4) CHF exacerbation: Code(s): I50.9 - Heart failure, unspecified Status: Chronic Assessment and Plan: Diastolic in etiology. Continue furosemide 40 mg p.o. b.i.d.. (5) Elevated troponin: Code(s): R77.8 - Other specified abnormalities of plasma proteins Status: Acute Assessment and Plan: Uncertain etiology to this point. (6) Ventricular tachycardia: Code(s): I47.2 - Ventricular tachycardia Status: Acute Assessment and Plan: No recurrence thus far. (7) Chronic anticoagulation: Code(s): Z79.01 - [facility] (current) use of anticoagulants Status: Acute Assessment and Plan: Continue warfarin. Therapeutic, INR 2.2. Subjective Date/time seen: Date of service: 03/08/21 15:01 Follow-up for atrial fibrillation, ventricular tachycardia, elevated troponin. Patient seen during her stress test. Feeling well. Breathing is back to baseline, denies chest pain, palpitation. No new issues overnight. Patient is nervous about her stress test. She reports having a cardiac catheterization 2004 with normal coronary anatomy as she recalls. Review of Systems Review of Systems: All systems reviewed & are unremarkable except as noted in HPI and below Constitutional: Constitutional: Denies fatigue, Denies headache(s) and Denies weakness Eyes: Eyes: Denies blurry vision ENT: Reports Normal hearing present, Denies headache(s) and Denies neck pain Cardiovascular: Cardiovascular: Denies chest pain and Reports dyspnea Respiratory: Respiratory: Reports dyspnea Gastrointestinal: Gastrointestinal: Denies abdominal pain Genitourinary: Genitourinary: Denies hematuria and Denies flank pain Musculoskeletal: Musculoskeletal: Denies back pain, Denies neck pain and Denies numbness Integumentary/Breasts: Skin/Breast: Denies dry skin and Denies unusual bruising Neurologic: Reports Normal hearing present, Denies confusion, Denies headache(s), Denies numbness and Denies weakness Psychiatric: Psychiatric: Denies anxiety and Denies confusion Endocrine: Endocrine: Denies fatigue and Denies flushing Hematologic/Lymphatic: Hematologic/Lymphatic: Denies easy bleeding and Denies easy bruising Allergic/Immunologic: Allergic/Immunologic: Denies GI upset with certain foods Exam Narrative: Exam Narrative: Alert oriented appears to be in no acute distress. She appears stated age Const: General: comfortable and no acute distress; No confusion Orientation/consciousness: No confusion HENMT: General nose exam: Normal nares present Eyes: Sclera: sclerae normal Neck: Neck: supple and no JVD Chest: Other: No rep
--- NOTE | 2021-03-08 15:14 | PM.IMPN ---
Progress Note: A&P Assessment and Plan (1) Acute exacerbation of chronic obstructive airways disease: Code(s): J44.1 - Chronic obstructive pulmonary disease with (acute) exacerbation Status: Acute Assessment and Plan: Continue with Solu-Medrol. Continue with neb treatments. Continue with home oxygen. The patient was hypercapnic initially but was placed on the BiPAP machine. She has been taken off at this time. She is currently on her home oxygen. 03/08/21 15:14 Been patient had a stress test today it showed: Large area of severe mixed ischemia and infarct involving mid inferior wall, mid to basal inferolateral wall, apical lateral wall, and mid anterolateral wall of left ventricle. 2. Normal left ventricular ejection fraction measuring 59%. Patient was seen by Cardiology as patient does not have any complaint of chest and currently on Coumadin with INR of 2.2 recommending maximum medical management and follow-up as outpatient for angiographic, patient blood culture is growing coagulase-negative staphylococci chest x-ray is not conclusive for pneumonia, white counts a not significantly elevated, and patient has no fever, patient does have a bacteremia and being treated with vancomycin will consult Dr. caal for further recommendation, will monitor patient overnight and reassess in the morning and further recommendation to follow, upon arrival patient was diagnosed exacerbation of COPD and placed on Solu-Medrol, will taper to prednisone will continue updraft and monitor. (2) CHF exacerbation: Code(s): I50.9 - Heart failure, unspecified Status: Chronic Assessment and Plan: I did order another echo as the patient stated she does not believe she has had 1 in last 6 months. I changed her Lasix to IV. And continued with her metoprolol. (3) Chronic respiratory failure with hypoxia, on home oxygen therapy: Code(s): J96.11 - Chronic respiratory failure with hypoxia; Z99.81 - Dependence on supplemental oxygen Status: Chronic Assessment and Plan: The patient is back on her home oxygen at 2.5 L. she had been on a BiPAP earlier and is tolerating the oxygen at this point. (4) Hypertension: Code(s): I10 - Essential (primary) hypertension Status: Chronic Assessment and Plan: Continue with metoprolol and hydralazine. (5) Paroxysmal A-fib: Code(s): I48.0 - Paroxysmal atrial fibrillation Status: Chronic Assessment and Plan: Patient is currently in sinus rhythm. She is on Coumadin but her INR is 1.8 check daily PT INR. Patient stated she recently increased her Coumadin to 6 mg from 5. Continue to monitor. Continue with metoprolol, today INR 2.2 (6) Iron deficiency anemia: Code(s): D50.9 - Iron deficiency anemia, unspecified Status: Chronic Assessment and Plan: Continue with ferrous sulfate. Her H&H is low as mentioned above but I have nothing to compare this with. (7) Diabetes: Code(s): E11.9 - Type 2 diabetes mellitus without complications Status: Chronic Assessment and Plan: Check A1c. Her blood sugar was over 200 today I suspect that her blood sugar will be higher with the Solu-Medrol. Holding her metformin due to her acute renal failure. (8) Renal failure: Qualifiers: Renal failure chronicity: unspecified chronicity Qualified Code(s): N19 - Unspecified kidney failure Code(s): N19 - Unspecified kidney failure Status: Acute Assessment and Plan: Hold any nephrotoxic medications. With a not sure if this is chronic with the patient denies is chronic. To typically goes the [facility] and home. (9) Elevated troponin: Code(s): R77.8 - Other specified abnormalities of plasma proteins Status: Acute Assessment and Plan: Patient has no complaints of any chest pain. This could be related to her renal failure or to her congestive heart failure. Her tropo
[2021-03-08 16:43] LABS: Glucose Point of Care 358 (65-105)
[2021-03-08 17:07] LABS: Vancomycin Trough 9.7 ug/mL (10.0-20.0)
[2021-03-08 20:22] LABS: Glucose Point of Care 411 (65-105)
[2021-03-09] VITALS (17 sets, daily range): BP systolic 154–162; BP diastolic 69–88; PULSE 62–120; RESP 18–20; TEMP 36.3–36.6; O2SAT 98–100
[2021-03-09] MEDS: hydrALAZINE HCL 50 MG TABLET 100 MG PO ×3 (01:58→18:07)
[2021-03-09] MEDS: IPRATROPIUM BR 0.02% INH SOLN 0.5 MG/2.5 ML VIAL INHALATION ×3 (02:05→14:48)
[2021-03-09] MEDS: ALBUTEROL SULFATE NEB 2.5 MG/0.5 ML INH 5 MG INHALATION ×3 (02:05→14:48)
[2021-03-09 05:00] LABS: Hematocrit 34.7 % (37.0-47.0); Hemoglobin 11.1 g/dL (12.0-15.0); Mean Corpuscular Hemoglobin 28.6 pg (26-34); Mean Corpuscular Volume 89.4 fl (80-100); Mean Platelet Volume 10.4 fl (7.4-10.4); Platelet Count Result 147 k/mm3 (150-375); Red Blood Count 3.88 M/mm3 (4.2-5.4); Red Cell Distribution Width 14.7 % (11.5-14.5); White Blood Count 10.4 K/mm3 (4.5-10.0)
[2021-03-09 05:09] LABS: Prothrombin Time 23.1 Seconds (11.1-14.7)
[2021-03-09 07:07] LABS: Glucose Point of Care 180 (65-105)
[2021-03-09] MEDS: ATORVASTATIN 40 MG TABLET PO (08:48)
[2021-03-09] MEDS: predniSONE 40 MG, predniSONE 10 MG 50 MG PO (08:48)
[2021-03-09] MEDS: METOPROLOL TARTRATE 50 MG TAB 100 MG PO (08:49)
[2021-03-09] MEDS: FUROSEMIDE 40 MG TABLET PO ×2 (08:49→18:08)
[2021-03-09] MEDS: WARFARIN (*PBKC) 3 MG TABLET 6 MG PO (08:49)
[2021-03-09] MEDS: POTASSIUM CHLORIDE 10 MEQ TABLET.ER PO (08:49)
[2021-03-09] MEDS: amLODIPine BESYLATE 5 MG TABLET 10 MG PO (08:49)
[2021-03-09] MEDS: FERROUS SULFATE 324 MG TABLET PO ×2 (08:50→18:08)
[2021-03-09] MEDS: BETAMETHASONE/CLOTRIMAZOLE CR 15 GM TUBE 1 APPLIC TOPICAL (08:50)
[2021-03-09] MEDS: ASPIRIN 81 MG CHEWABLE TABLET PO (08:53)
[2021-03-09] MEDS: INSULIN GLARGINE (*BKC) 100 UNITS/ML 10 UNITS SUB-Q ×2 (08:53→18:09)
[2021-03-09 11:54] LABS: Glucose Point of Care 213 (65-105)
[2021-03-09] MEDS: INSULIN ASPART (*BKC) 100 UNITS/ML SUB-Q ×2 (12:44→18:08)
--- NOTE | 2021-03-09 14:14 | PM.PNCARD ---
Progress Note: A&P Assessment and Plan (1) Hypertension: Code(s): I10 - Essential (primary) hypertension Status: Chronic Assessment and Plan: Better controlled, not ideal. Continue amlodipine. (2) Paroxysmal A-fib: Code(s): I48.0 - Paroxysmal atrial fibrillation Status: Chronic Assessment and Plan: In and out of AFib. She does not need digoxin. Continue metoprolol. Continue warfarin goal INR 2-3. Monitor for bleeding. (3) Abnormal stress test: Code(s): R94.39 - Abnormal result of other cardiovascular function study Status: Acute Assessment and Plan: Stress test with reported large severe mixed infarct and ischemia inferior, inferolateral, anterolateral arcos no wall motion abnormalities EF 59%. Patient without symptoms at this time. Continue aggressive medical therapy. Given INR 2.2 unable to proceed with coronary angiography at this time. Follow up as an outpatient for further discussion and to notify us immediately any new concerns or questions with regards to chest pain or shortness of breath. Will follow up in the office in 2 weeks with further discussions to follow. Continuestatin therapy for further risk reduction. Atorvastatin 40 mg at bedtime. Follow up with Dr. Lai as outpatient (4) CHF exacerbation: Code(s): I50.9 - Heart failure, unspecified Status: Chronic Assessment and Plan: Diastolic in etiology. Continue furosemide 40 mg p.o. b.i.d.. (5) Elevated troponin: Code(s): R77.8 - Other specified abnormalities of plasma proteins Status: Acute Assessment and Plan: Uncertain etiology to this point. (6) Ventricular tachycardia: Code(s): I47.2 - Ventricular tachycardia Status: Acute Assessment and Plan: No recurrence thus far. (7) Chronic anticoagulation: Code(s): Z79.01 - [facility] (current) use of anticoagulants Status: Acute Assessment and Plan: Continue warfarin. Therapeutic, INR 2.0. follow INR. (8) Bacteremia: Code(s): R78.81 - Bacteremia Status: Acute Assessment and Plan: Per hospitalist service. Infectious Disease consulted. Subjective Date/time seen: Date of service: 03/09/21 14:14 Follow-up for atrial fibrillation, shortness of breath, abnormal stress test Patient feels well. She denies shortness of breath, fevers, chills, chest pain or palpitations. AFib controlled overnight. Patient was not discharged home pending infectious disease consultation for positive blood cultures obtained at admission on 03/04/2021 with coag-negative staph x2. Review of Systems Review of Systems: All systems reviewed & are unremarkable except as noted in HPI and below Constitutional: Constitutional: Denies fatigue, Denies headache(s) and Denies weakness Eyes: Eyes: Denies blurry vision ENT: Reports Normal hearing present, Denies headache(s) and Denies neck pain Cardiovascular: Cardiovascular: Denies chest pain and Reports dyspnea Respiratory: Respiratory: Reports dyspnea Gastrointestinal: Gastrointestinal: Denies abdominal pain Genitourinary: Genitourinary: Denies hematuria and Denies flank pain Musculoskeletal: Musculoskeletal: Denies back pain, Denies neck pain and Denies numbness Integumentary/Breasts: Skin/Breast: Denies dry skin and Denies unusual bruising Neurologic: Reports Normal hearing present, Denies confusion, Denies headache(s), Denies numbness and Denies weakness Psychiatric: Psychiatric: Denies anxiety and Denies confusion Endocrine: Endocrine: Denies fatigue and Denies flushing Hematologic/Lymphatic: Hematologic/Lymphatic: Denies easy bleeding and Denies easy bruising Allergic/Immunologic: Allergic/Immunologic: Denies GI upset with certain foods Exam Narrative: Exam Narrative: Alert oriented appears to be in no acute distress. She appears stated age Const: General: comfortable and no acute distress; No con
--- NOTE | 2021-03-09 16:40 | PM.IMPN ---
Progress Note: A&P Assessment and Plan (1) Bacteremia: Code(s): R78.81 - Bacteremia Status: Acute Assessment and Plan: patient blood culture is growing coagulase-negative staphylococci chest x-ray is not conclusive for pneumonia, white counts a not significantly elevated, and patient has no fever, patient does have a bacteremia and being treated with vancomycin will consult Dr. caal for further recommendation, Additional Plan (1) Acute exacerbation of chronic obstructive airways disease: (2) CHF exacerbation: (3) Chronic respiratory failure with hypoxia, on home oxygen therapy: (4) Hypertension (5) Paroxysmal Afib on warfarin (6) Iron deficiency anemia: (7) Diabetes: (8) Renal failure: (9) Elevated troponin: Secondary to hypoxemia (10) Community acquired pneumonia: (11) hyperglycemia Continue with Solu-Medrol. Continue with neb treatments. Continue with home oxygen. 3 L Continue BiPAP machine p.r.n.. Echo pending patient appears to have systolic heart failure based on physical exam findings today continue Lasix to IV Continue with metoprolol and hydralazine. INR 2.2 continue home dose 6 mg p.o. q.day Increase sliding scale insulin Avoiding nephrotoxic medications. 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 [facility]) cont warfarin ECHO cardiogram reviewed mod EF 60-65% w Diastolic dysfxn Time for this encounter 45min 03/07/21 lasix home dose resumed Lantus increased first dose given this morning anticipate BG to improve today, will need to hold when pt placed NPO cont ISS BP still not at goal, PRN hydralazine added, suspect pt would benefit from nifedipine 30XL instead of amlodipine 10mg cont metoprolol, no digoxin, cardiac recs appreciated cont warfarin 03/08/21 15:14 Been patient had a stress test today it showed: Large area of severe mixed ischemia and infarct involving mid inferior wall, mid to basal inferolateral wall, apical lateral wall, and mid anterolateral wall of left ventricle. 2. Normal left ventricular ejection fraction measuring 59%. Patient was seen by Cardiology as patient does not have any complaint of chest and currently on Coumadin with INR of 2.2 recommending maximum medical management and follow-up as outpatient for angiographic, patient blood culture is growing coagulase-negative staphylococci chest x-ray is not conclusive for pneumonia, white counts a not significantly elevated, and patient has no fever, patient does have a bacteremia and being treated with vancomycin will consult Dr. caal for further recommendation, will monitor patient overnight and reassess in the morning and further recommendation to follow, upon arrival patient was diagnosed exacerbation of COPD and placed on Solu-Medrol, will taper to prednisone will continue updraft and monitor. Subjective Date/time seen: 03/09/21 16:40 Patient was seen by Cardiology as patient does not have any complaint of chest and currently on Coumadin with INR of 2.2 recommending maximum medical management and follow-up as outpatient for angiographic, patient blood culture is growing coagulase-negative staphylococci chest x-ray is not conclusive for pneumonia, white counts a not significantly elevated, and patient has no fever, patient does have a bacteremia and being treated with vancomycin will consult Dr. caal for further recommendation, will monitor patient overnight and reassess in the morning and further recomm
--- NOTE | 2021-03-09 16:52 | PM.DS ---
DS: Admitting Diagnosis Admitting Diagnosis Admitting Diagnosis: Chief Complaint: Dyspnea on exertion DS: Discharge Diagnosis Discharge Diagnosis (1) Bacteremia: Code(s): R78.81 - Bacteremia Status: Acute Assessment and Plan: patient blood culture is growing coagulase-negative staphylococci chest x-ray is not conclusive for pneumonia, white counts a not significantly elevated, and patient has no fever, patient does have a bacteremia and being treated with vancomycin will consult Dr. caal for further recommendation, DS: Summary Hospital Course Reason for hospitalization: this is a 65 year old female patient who has a history of chronic respiratory failure with oxygen at 2.5 L per nasal cannula. She has COPD and congestive heart failure. The patient does not have any increased swelling in her lower extremities has been feeling more short of breath over the last 2 days. Today she crease her oxygen up to 4 L per nasal cannula. For the past 2 days she has been more short of breath with exertion. She has been walking shorter distances due to the shortness of breath. The patient has not had her COVID vaccine but has a history of COVID-19 infection back in August of 2020. She denied any fever chills. No nausea vomiting or diarrhea. Patient's oxygen levels 93%. Chest x-ray was read as airspace opacities in the mid and lower lung zones with perihilar predominance, consistent with pulmonary edema versus pneumonia. Small left pleural effusion. Cardiomegaly. Her EKG was read as normal sinus rhythm nonspecific T-wave abnormality. H&H is 10.9 and 35.4. On her ABGs her pH was 7.339 and her CO2 was 65.1. She was initially placed on a BiPAP while in the emergency room but felt better and is now down to her normal 2.5 L. her O2 saturation is 100% now. Was given a nebulizer treatment, Lasix, Levaquin, nitro, and Solu-Medrol. The patient stated that she does not have any chest pain. The patient was swabbed for COVID-19 and results are pending.. Glucose 203. Creatinine 1.60. The patient denies any past history of any kidney disease. The patient stated with her last labs her A1c was good according to the patient but she could not remember the numbers. Troponin 0.039 and 0.075. BNP is 5670. The patient is being admitted for observation status on Date of service of 03/04/2021. Chief Complaint: Dyspnea on exertion Hospital Course: Patient was seen by Cardiology as patient does not have any complaint of chest and currently on Coumadin with INR of 2.2 recommending maximum medical management and follow-up as outpatient for angiographic, patient blood culture is growing coagulase-negative staphylococci chest x-ray is not conclusive for pneumonia, white counts a not significantly elevated, and patient has no fever, patient does have a bacteremia and being treated with vancomycin will consult Dr. caal for further recommendation, will monitor patient overnight and reassess in the morning and further recommendation to follow, upon arrival patient was diagnosed exacerbation of COPD and placed on Solu-Medrol, patient is clinically stable, will taper to prednisone, will continue his home regiment and follow up with his primary care. Status at Discharge Functional status at discharge: independent ambulation Overall status at discharge: patient is back to baseline Time Spent with Patient Time attestation: Total time spent providing and/or coordinating discharge services: Patient was seen and examined at the time of the discharge Condition at discharge is stable Code status: Full code. Time spent preparing discharge summary, discharge medications, discussing discharge planning with ed case manager and patient is 35 minutes. Time spent: Greater than 30 minutes Exam Narrative: Exam Narrative: Patient is comfortable, NAD HEENT: eyes are clear and none icteric LUNGS:CTA HEART: RR S1S2 ABD: BS+, Soft and nontender Lower extremities: no temo
[2021-03-09 17:13] LABS: Glucose Point of Care 318 (65-105)
== END 2021-03-09 18:41 | disposition home or self-care (01) | DRG 190 ==
LOC: ANHED 10:40 → ANHIMU 13:24
PROVIDERS: Hospitalist; Nurse Practitioner; Admitting Provider Internal Medicine; Emergency Provider Emergency Medicine; PCP Family Medicine; Visit Provider Family Medicine
DX: J44.1 Chronic obstructive pulmonary disease with (acute) exacerbation (principal); I50.33 Acute on chronic diastolic (congestive) heart failure; J96.11 Chronic respiratory failure with hypoxia; I47.2 Ventricular tachycardia; R78.81 Bacteremia; Z20.822 Contact with and (suspected) exposure to COVID-19; I11.0 Hypertensive heart disease with heart failure; E11.65 Type 2 diabetes mellitus with hyperglycemia; R94.39 Abnormal result of other cardiovascular function study; I48.0 Paroxysmal atrial fibrillation; N19 Unspecified kidney failure; D50.9 Iron deficiency anemia, unspecified; R77.8 Other specified abnormalities of plasma proteins; Z87.891 Personal history of nicotine dependence; Z99.81 Dependence on supplemental oxygen; Z86.16 Personal history of COVID-19; Z79.01 Long term (current) use of anticoagulants; Z79.899 Other long term (current) drug therapy; Z79.84 Long term (current) use of oral hypoglycemic drugs
CPT/HCPCS: 36415; 36600; 71046; 78452; 80048; 80053; 80202; 82805; 82948; 83036; 83735; 83880; 84439; 84443; 84480; 84484; 85025; 85027; 85380; 85610; 85730; 87040; 87077; 87186; 93005; 93017; 93306; 94002; 94003; 94640; 96365; 96375; 99291; A9270; A9502; C8929; C9803; J0360; J1815; J1940; J1956; J2785; J2930; J3370; J3475; J7512; Q9957; U0003; U0005

== ENCOUNTER 2021-03-23 12:07 | Outpatient (CLI) | payer MEDICARE, MEDICAID, SELFPAY ==
[2021-03-23 13:00] LABS: Basophils Percent Auto 0.2 % (0.2-1.2); Eosinophils Absolute Auto 0.1 K/mm3 (0-0.3); Eosinophils Percent Auto 1.6 % (0-4.4); Hematocrit 34.6 % (37.0-47.0); Hemoglobin 10.9 g/dL (12.0-15.0); Immature Granulocyte Absolute 0.04 K/mm3 (0.00-0.031); Immature Granulocyte Percent A 0.5 % (0-0.5); Lymphocytes Absolute Auto 0.68 K/mm3 (0.9-3.2); Lymphocytes Percent Auto 8.3 % (18.3-44.2); Mean Corpuscular HGB Conc 31.5 g/dl (32-36); Mean Corpuscular Hemoglobin 28.5 pg (26-34); Mean Corpuscular Volume 90.6 fl (80-100); Mean Platelet Volume 10.2 fl (7.4-10.4); Monocytes Absolute Auto 0.5 K/mm3 (0.1-0.6); Monocytes Percent Auto 5.6 % (2.6-8.5); Neutrophils Absolute Auto 6.9 K/mm3 (1.3-6.7); Neutrophils Percent Auto 83.8 % (45.5-73.1); Platelet Count Result 103 k/mm3 (150-375); Red Blood Count 3.82 M/mm3 (4.2-5.4); Red Cell Distribution Width 15.5 % (11.5-14.5); White Blood Count 8.2 K/mm3 (4.5-10.0)
[2021-03-23 13:12] LABS: INR 3.7; Prothrombin Time 37.3 Seconds (11.1-14.7)
[2021-03-23 13:18] LABS: Anion Gap 7 mmol/L (8-16); Blood Urea Nitrogen 36 mg/dL (7-17); Carbon Dioxide 27 mmol/L (22-30); Chloride 100 mmol/L (98-107); Estimated Glomerular Filt Rate 41; Glucose 183 mg/dL (65-105); Potassium 3.9 mmol/L (3.4-5.0); Sodium 134 mmol/L (137-145)
== END 2021-03-23 12:08 | disposition home or self-care (01) ==
PROVIDERS: PCP Family Medicine; Visit Provider Internal Medicine Cardiovascular Disease
DX: Z01.810 Encounter for preprocedural cardiovascular examination (principal); N18.9 Chronic kidney disease, unspecified; R94.30 Abnormal result of cardiovascular function study, unspecified
CPT/HCPCS: 36415; 80048; 85025; 85610